=== PATIENT | female | born 1970 | race Caucasian/White ===

== ENCOUNTER 2016-04-13 06:51 | Observation (INO) | payer BC ==
[2016-04-13] MEDS ORDERED: LORazepam TAB(*) 1 MG ONE (07:30)
[2016-04-13] MEDS ORDERED: Heparin 2 UNITS/ML IVPREMIX* 1,000 ML IV ONE ×3 (08:50→11:15)
[2016-04-13] MEDS ORDERED: fentaNYL* 50 MCG/ML 5 ML VIAL (250 MCG VIAL) ONE ×3 (08:51→12:18)
[2016-04-13] MEDS ORDERED: Lidocaine 1% INJ* 10 MG/ML 30 ML SDV ONE ×2 (08:51→11:05)
[2016-04-13] MEDS ORDERED: Iohexol 350 (CONTRAST) 200 ML MDV IV ONE ×4 (08:51→13:11)
[2016-04-13] MEDS ORDERED: Midazolam* 1 MG/ML 5 ML VIAL (5 MG) ONE ×3 (08:52→14:01)
[2016-04-13] MEDS ORDERED: Clindamycin 900 MG IVPREMIX(* 900 MG/50 ML SDV IV ONE (09:00)
[2016-04-13 09:06] LABS: Manual Entry Verification AS; UR Preg Internal Control QC Line Present; UR Preg Kit Lot# 6060104
[2016-04-13] MEDS ORDERED: Ondansetron INJ* 2 MG/ML VIAL ONE ×3 (09:19→12:19)
[2016-04-13] MEDS ORDERED: Ketorolac INJ* 30 MG/ML 1 ML VIAL ONE ×2 (09:19→13:59)
[2016-04-13] MEDS ORDERED: nitroGLYCERIN DRIP* 250 ML ONE (09:24)
[2016-04-13] MEDS ORDERED: Heparin(*) 1000 UNIT/ML 10 ML VIAL CATH LAB IV ONE (09:24)
[2016-04-13] MEDS ORDERED: VERAPAMIL 2.5 MG/ML 4 ML VIAL ONE (09:24)
[2016-04-13] MEDS ORDERED: Scopolamine 1.5 mg* PATCH TRANSDERM ONE (12:00)
[2016-04-13] MEDS ORDERED: PROCHLORPERAZINE INJ 5 MG/ML 2 ML VIAL ONE (12:32)
[2016-04-13] MEDS ORDERED: HYDROmorphone INJ* 1 MG/ML CARPUJECT SYRINGE ONE (14:14)
[2016-04-13] MEDS ORDERED: HYDROmorphone PCA* 20 MG/20 ML PCA.SYRING ONE (14:57)
[2016-04-13] MEDS: HYDROmorphone PCA* 20 MG/20 ML PCA.SYRING PCA SCH ×2 (15:00→15:56)
[2016-04-13] MEDS ORDERED: tiZANidine TAB* 2 MG PO PRN (15:26)
[2016-04-13] MEDS: Ondansetron INJ* 2 MG/ML VIAL IV PRN (15:37)
--- NOTE | 2016-04-13 16:46 | RAD ---
CPT II Codes: 6045F UTERINE ARTERY EMBOLIZATION FIRST ATTEMPTED FROM A LEFT RADIAL ARTERIOTOMY AND THEN COMPLETED FROM RIGHT COMMON FEMORAL ARTERIOTOMY History: Pain, vaginal bleeding and dyspareunia secondary to uterine fibroids. Comparison: MRI of the pelvis February 02, 2016 that depicts multiple uterine fibroids. Anesthesia: Conscious sedation with IV 750 mcg Fentanyl and 11 mg Versed as well as local 1% lidocaine injected locally at the arteriotomy sites. Additional medications: "Radial cocktail" (Heparin 3000 units, Nitroglycerin 300 mcg and Verapamil 3 mg) was slowly injected into the radial artery sheath immediately after arterial access over the course of 1 minute. Toradol 30 mg IV. Toradol 30 mg intra-arterial (15 mg injected into each uterine artery). Scopolamine patch placed immediately before the embolization procedure. Clindamycin 900 mg IV administered immediately before the procedure. 1150 mcg IA nitroglycerin administered intermittently throughout the procedure to alleviate arterial spasm. Compazine 5 mg. Versed 8 mg Bilateral 1 mg Contrast: 150 mL Omnipaque 350 Fluoroscopy Time: 54.2 minutes PROCEDURE NOTE AND INTRAPROCEDURAL IMAGING FINDINGS: In the holding area the patient underwent a Barbeau and Tre test documenting that both the left radial and ulnar arteries were patent and were capable of sustaining adequate arterial flow to the left hand and fingers. Following a preprocedural clinical evaluation the risks and benefits were again carefully discussed with the patient and informed consent was obtained. The patient was positioned on the fluoroscopy table in the supine position with a radial artery armboard positioned on the left wrist. The left wrist and bilateral groins were prepped and draped in standard sterile fashion. Using fluoroscopic imaging the location of the distal left radius was visualized. Utilizing sonographic guidance and palpation the left radial artery was cannulated overlying the distal left radius with an 21-gauge needle. An ultrasound image was saved. A microwire was slowly and smoothly advanced to the more proximal radial artery under fluoroscopic imaging. No buckling of the wire was visualized to indicate dissection. Over the wire a 5-Bangladeshi radial artery appropriate catheter was advanced into the artery and the inner stiffener was removed. Through the side arm of the access sheath the "radial cocktail" was attached and diluted with approximately 10 mL of arterial blood. This mixture was gently agitated and slowly injected back into the side arm of the access sheath over the course of 1 minute. At this point a 0.035" wire was loaded onto a 5-Bangladeshi curved tip catheter, and with the wire protruding out of the end of the catheter, the combination was inserted into the sheath and gently advanced under fluoroscopic control in the cephalad direction. Access was obtained via the left subclavian artery into the arch of the aorta and the catheter wire combination was advanced caudally towards the aortic bifurcation. The catheter and wire were advanced to the infrarenal abdominal aorta for the purpose of performing a pelvic arteriogram. The catheter was removed and replaced with a multi-sidehole pigtail flush catheter. Arteriography demonstrated standard pelvic arterial anatomy and large bilateral uterine fibroids. No hypertrophied ovarian arteries were identified providing uterine arterial flow. The patient began complaining of discomfort in the left upper extremity describing a "aching sensation" that did not respond to standard pain medication as part of the conscious sedation. Furthermore, the pulse oximetry on the patient's left thumb began showing diminished waveforms and hypoxia as low as 85%. The patient's fingertips were exposed and directly visualized and did exhibit mild pallor with delayed capillary refill. The catheter was pulled back to the junction of the axillary and brachial artery and arteriography was performed demonstrating mild long segment narrowing of the brachial artery characteristic of vasospasm. Approximately 200 mcg of nitroglycerin was gently injected from that point in the proximal brachial artery and then the catheter was removed. Promptly, the arterial waveforms return to normal as did the pulse oximetry. Now de-scrubbed to perform physical examination of the patient's hand the fingers felt warm to touch and capillary refill was normal. It was at this point it was determined that the patient appeared to be prone to vasospasm and could not tolerate catheterization during the course of uterine fibroid embolization of the left upper extremity. The access sheath was carefully removed and gentle manual pressure was held at the radial arteriotomy for approximately 15 minutes. Pulse oximetry was monitored during this time to ascertain adequate arterial flow to the left hand and fingers. The arteriotomy was dressed with sterile dressing, bleeding was controlled and adequate arterial flow to the left hand and fingers was demonstrated. I discussed the situation first with a patient who expressed the desire to proceed with uterine fibroid embolization. Afterwards, I spoke with the patient's partner "Kathryn" to explain the situation and conveyed to her that the patient desired to continue UFE from a standard common femoral arteriotomy. The patient's partner was supportive of this plan as well. The patient was repositioned and again prepped and draped according to standard sterile protocol. A second timeout was performed and all parties including the patient were in agreement. Using fluoroscopic imaging the location of the right common femoral head was marked externally with a skin marker on the patient's groin. Utilizing sonographic guidance and palpation the right common femoral artery was cannulated overlying the right femoral head with an 18-gauge needle. An ultrasound image was saved. A 0.035 inch Bentson wire was slowly and smoothly advanced to the aortic bifurcation under fluoroscopic imaging. No buckling of the wire was visualized to indicate dissection. Over the wire a 5-Bangladeshi SideArm sheath was advanced into the artery, the inner stiffener removed and side arm arteriogram demonstrated appropriate level ELECTRIC MOTOR TESTER access. Utilizing a Bentson wire and 5-Bangladeshi Contra 2 flush catheter the left common iliac artery was accessed. Contrast angiography was performed to detail the branches of the left internal iliac artery which had depicted the uterine artery providing blood flow to the patient's fibroid uterus. Arteriograms in multiple oblique projections were performed to best discern the branch point of the uterine artery. Once the uterine artery was identified, a Renegade High-flow microcatheter and microwire were advanced into the parent catheter and, in conjunction with contrast angiography, the uterine artery was identified and selected with the micro catheter. Prior to embolization, contrast injection in the lateral portion of the uterine artery demonstrated no large, obvious collateral blood flow to the ovaries and a definite cervicovaginal branch was not seen descending inferiorly. Intra-arterial nitroglycerin was intermittently injected to alleviate arterial spasm. Under fluoroscopic control approximately 1 and 3/4 vials of 500-700 micron Embospheres were slowly injected into the uterine artery to near complete stasis. [place] through the embolization 15 mg of Toradol was injected intra-arterially. The microcatheter was pulled back into the more proximal descending portion of the uterine artery and contrast angiography depicted near complete stasis of the uterine artery. The microcatheter was removed and replaced with an 0.035" guidewire. The morphology of the patient's vasculature may difficult forming a Merit reverse curve uterine catheter. Ultimately a "Sweetie's loop" was created utilizing the stiff end of the Bentson wire and a 5-Bangladeshi curved tip catheter. The Bentson wire was removed and replaced with a 0.035 inch hydrophilic wire (within the soft flexible tip leading). Utilizing the hydrophilic wire and the now "looped" 5-Bangladeshi curved tip catheter access into the ipsilateral right internal iliac artery was obtained. Contrast angiography demarcated the right uterine artery and multiple oblique projections were obtained to best depict the origin of the uterine artery. Access into the right uterine artery was challenging due to the tortuous branch point of the artery as well as due to vasospasm at the ostium and proximal portion. Ultimately a Renegade High-flow microcatheter and microwire were advanced into the parent catheter and, in conjunction with contrast angiography, the uterine artery was identified and selected with the micro catheter. Prior to embolization, contrast injection in the lateral portion of the uterine artery demonstrated no large, obvious collateral blood flow to the ovaries and a definite cervicovaginal branch was not seen descending inferiorly. Intra-arterial nitroglycerin was intermittently injected to alleviate arterial spasm. Under fluoroscopic control approximately 1 and 1/4 vial of 500-700 micron Embospheres and approximately 3/4 vial of 700-900 um Embospheres were slowly injected into the uterine artery to near complete stasis. [place] through the embolization 15 mg of Toradol was injected intra-arterially. The microcatheter was pulled back into the more proximal descending portion of the uterine artery and contrast angiography depicted near complete stasis of the uterine artery. The micro catheter was removed, replaced with a 0.035" wire and the looped 5-Bangladeshi curved tip catheter and wire were removed after reaccessing the contralateral left common iliac artery. The access sheath was removed and pressure was held at the common femoral arteriotomy for approximately 15 minutes. There were no signs of bleeding at the right groin access site and the site was dressed with sterile gauze and Tegaderm. The patient tolerated the procedure well and was transferred to the short stay recovery unit in stable condition for routine overnight observation and pain and nausea control. IMPRESSION: 1. Uterine artery embolization first attempted from a left radial arteriotomy access. After the initial pelvic arteriogram the patient complained of persistent left upper extremity pain and exhibited diminished pulse oximetry of the left hand and fingertips due to long segment vasospasm of the left brachial artery. Normal arterial flow was reestablished after local injection of nitroglycerin and removal of the catheter. Ultimately the radial access sheath was removed and hemostasis was achieved with gentle manual pressure. 2. After determining that normal and safe arterial flow had resumed to the left hand and fingers and bleeding was controlled the situation was discussed with the patient and the patient's partner "Kathryn". Both the patient and her partner desired pursuing the uterine fibroid embolization from a left common femoral arteriotomy. The patient was repositioned, resterilized and draped and the procedure was performed from the right common femoral arteriotomy. 3. Pelvic arteriography demonstrates a fibroid uterus. 4. Pelvic arteriography and aortography as described in the body of the report. 5. Successful bilateral uterine artery embolization utilizing a total of 3 vials of 500-700 micron Embospheres and approximately 3/4 vial of 700-900 micron Embospheres. . 6. Post embolization uterine arteriography demonstrates near complete stasis of blood flow in each uterine artery. Plan: 1. The patient is to be admitted to short state recovery unit for routine overnight observation and pain and nausea control. 2. Outpatient management and follow-up according to Interventional Radiology protocol.
--- NOTE | 2016-04-13 17:39 | PN ---
Progress Note - Progress Note SOAP: Date of Service: 04/13/16 Subjective: Patient without pain complaints with Dilaudid ORDNANCE MECHANIC. Nausea controlled with PRN Zofran. No emesis since arrival to [facility]. Denies pain at either arteriotomy. Denies LUE and left hand pain. Objective: [] Selected Entries 04/13/16 04/13/16 16:34 16:56 Temperature 97.6 F Pulse Rate 71 Respiratory 18 Rate Blood Pressure 143/83 (mmHg) Blood Pressure 98 Mean O2 Sat by Pulse 97 Oximetry Specifically a pulse oximeter on the left middle finger reads high 90's to 100% Arousable, but sleepy Right CF and left radial arteriotomies are soft, non-ecchymotic and not tender Dressings are CDI RLE with 2+ pulses, right foot is warm to touch Left radial is 1+ palpable, left hand is perfused, <2 second capillary refill NM intact in left hand No significant tenderness to pelvic palpation Assessment: 45 YOF status post Uterine Fibroid Embolization, first attempted from a failed left radial artertiomy, then completed successfully from right CF arteriotomy. The patient experienced vasospasm in the left brachial artery which resolved after removal of the left radial access. Plan: 1. Standard post UFE pain and nausea control with Compazine 5 mg Q 6 hours replacing Zofran. (Zofran remains PRN). 2. Continue pulse oximetry monitoring of the left hand (currently 100% saturation). 3. Villalba d/c at 2000 hours at the same time as bedrest order will cease. 4. Advance diet cautiously. 5. Transition to PO meds tomorrow (as nausea/emesis allows) and encourage ambulation.
[2016-04-13] MEDS ORDERED: NIFEdipine ER TAB* 30 MG PO ONE (19:15)
[2016-04-13] MEDS: Ketorolac INJ* 15 MG/ML 1 ML VIAL IV PUSH SCH (20:15)
[2016-04-13] MEDS: PROCHLORPERAZINE INJ 5 MG/ML 2 ML VIAL IV SCH ×2 (20:15→21:01)
[2016-04-13] MEDS ORDERED: Atenolol TAB* 25 MG PO SCH (21:00)
--- NOTE | 2016-04-13 21:20 | HP ---
HISTORY AND PHYSICAL: DATE OF ADMISSION: 04/13/16 PRIMARY CARE PROVIDER: Dr. Ponce. ATTENDING PHYSICIAN WHILE IN THE HOSPITAL: Sandra Solares MD * (report dictated by Miles Vaughan NP). CONSULTING BOAT WASHER: Dr. Shaver. CHIEF COMPLAINT: Pelvic pain syndrome. HISTORY OF PRESENT ILLNESS: Mrs. Aranda is a 45-year-old female patient who recently was diagnosed with uterine fibroids. She has had a longstanding history of heavy menses and pelvic pain associated with menses. She has had endometriosis, PCOS. In addition to this, has had significant pain associated with her menses. This is starting to affect her ADLs. She was having difficulty managing the pain with conservative therapy. She sought care with Dr. Shaver, who scheduled her for an uterine fibroid embolization, which she underwent today and we were asked to evaluate to help for the admission. The patient was evaluated in the postoperative setting. She said she feels drowsy but she says she is having lower abdominal cramping. She does not feel nauseous. She just feels tired. She denies having any chest pain. She denies having any shortness of breath, nausea. She states the SMALL PARTS ASSEMBLER is controlling her pain well. She says that she denies having any numbness or tingling through the right lower extremity and she says that her left wrist she has no numbness or tingling there. A radial approach was attempted but I will refer you to Dr. Shaver's procedure report. Ultimately a femoral approach was needed to complete the procedure. She also carries a history of GERD, scoliosis, lumbar radiculopathy, history of spinal stenosis, and SVT, and because of her comorbid medical conditions and her medical complexity, we were asked to evaluate the patient for admission with a consult from Dr. Shaver. PAST MEDICAL HISTORY: Significant for: 1. Uterine fibroids. 2. Endometriosis. 3. PCOS. 4. GERD. 5. Scoliosis. 6. Lumbar radiculopathy. 7. Spinal stenosis. 8. SVT. PAST SURGICAL HISTORY: 1. She has had . 2. Oophorectomy. 3. Appendectomy. HOME MEDICATIONS: Include: 1. Zanaflex 4 mg p.o. at bedtime as needed. 2. Vitamin E 100 units p.o. daily. 3. Omeprazole 20 mg daily. 4. Rio 1 tablet every 4 hours as needed. 5. Flonase 2 sprays intranasally daily. 6. Vitamin B 1 capsule daily. 7. Atenolol 25 mg at bedtime. ALLERGIES TO MEDICATIONS: Include AMOXICILLIN, AZITHROMYCIN, ERYTHROMYCIN, RELAFEN, PENICILLIN, SULFA, and TETANUS. FAMILY HISTORY: Mother had a history of ovarian cyst, otherwise family history reviewed and noncontributory. SOCIAL HISTORY: She is a former smoker. She rarely drinks alcohol. Surrogate decision maker is her partner, Kathryn. REVIEW OF SYSTEMS: There is no documented fever. She denies having any significant weight change. She denies having any double vision. There is no ear discharge. There is no rhinorrhea, no sore throat, no thyroid enlargement. She denies having any chest pain. There is lower abdominal cramping. She denies having any nausea. There is no vomiting. No dysuria, no frequency, no loss of consciousness, no pruritus, no skin ulcerations. Review of 14 systems completed, all others negative. PHYSICAL EXAMINATION GENERAL: At this time, Mrs. Aranda is a 45-year-old female patient. She is evaluated in the surgical unit in the postoperative setting. She does not appear to be in any acute distress. She is awake and alert. She does appear to be drowsy. VITAL SIGNS: Blood pressure 148/84, pulse 55, respirations 18, O2 sat 98%, temperature 97.3. HEENT: Head is atraumatic, normocephalic. Eyes: EOMs are intact. Sclerae anicteric and not pale. Throat: Oral mucosa appears to be dry. No oropharyngeal erythema. NECK: Supple. LUNGS: Clear to auscultation bilaterally. No wheezes, rales, or rhonchi. HEART: Sounds S1, S2. Regular rate and rhythm. No murmurs, rubs, or gallops. ABDOMEN: Soft, flat, nontender. Bowel sounds present. EXTREMITIES: Pulses 2+ throughout. Distal CSM checks are intact to left wrist and the right lower extremity. The right lower extremity is immobilized at this point. NEUROLOGIC: She is awake, alert, and oriented x3. Speech clear. Tongue midline. She is a little drowsy but she awakens appropriately and answers appropriately. No gross focal deficits. SKIN: Intact. She has an incision to the left wrist and to the right groin, which were clean, dry, and intact. DIAGNOSTIC STUDIES/LAB DATA: Preoperative labs revealed a WBC of 6.2, RBC of 3.99, hemoglobin 11.5, hematocrit 35, platelet count of 240. Sodium is 136, potassium 4.2, chloride 106, bicarb 25, BUN 11, creatinine 0.73, glucose 104. She had a pelvic MRI done in January 2016, which showed MRI findings are compatible with multiple uterine fibroids located in the subserosal, myometrial and submucosal uterus, the latter cause a mild degree of torsion of the uterine stripe, ovarian follicles are identified and bilateral ovaries are not pathologic in a woman of reproductive age. Old medical records reviewed. ASSESSMENT AND PLAN: Mrs. Aranda is a 45-year-old female patient coming into Dr. Shaver's service today for an elective uterine fibroid embolization. Hospitalist service was asked to evaluate for admission. She will be admitted under observation status for: 1. Uterine fibroid embolization. I will defer the management to Dr. Shaver and his team. 2. History of endometriosis and PCOS. She can follow with her primary. 3. History of gastroesophageal reflux disease. Continue PPI therapy. 4. Scoliosis, radiculopathy, and spinal stenosis. She currently has a SMALL PARTS ASSEMBLER for now. I recommend going back on her prior pain medications when SMALL PARTS ASSEMBLER discontinued. 5. History of supraventricular tachycardia. Continue the atenolol as prescribed. 6. DVT prophylaxis. I will defer this to Dr. Shaver but for the time being she will be on SCDs. 7. Fluids, electrolytes, nutrition. She can have a clear liquid diet, we will start her on clears and advance her to a regular diet. 8. Code status. Full code. TIME SPENT: Time spent on the admission was approximately 60 minutes; greater than half the time was spent [id number] with the patient obtaining my history and physical, the other half of the time is spent going over the plan of care with the patient and implementing plan of care. I discussed the plan of care with my attending, Dr. Solares, she is in agreement. MILES VAUGHAN NP CC: Dr. Ponce; Dr. Shaver * [id number]/[facility] #: [id number] MTDD
[2016-04-13] MEDS: NS 0.9% 1000 ML* 1,000 ML IV SCH (22:37)
[2016-04-14] MEDS: Ondansetron INJ* 2 MG/ML VIAL IV PRN ×3 (00:05→12:30)
[2016-04-14] MEDS ORDERED: Omeprazole CAP* 20 MG PO SCH (01:00)
[2016-04-14] MEDS: PROCHLORPERAZINE INJ 5 MG/ML 2 ML VIAL IV SCH ×2 (01:51→08:16)
[2016-04-14] MEDS: Ketorolac INJ* 15 MG/ML 1 ML VIAL IV PUSH SCH ×2 (01:52→08:16)
[2016-04-14] MEDS: Acetaminophen TAB* 325 MG PO PRN ×3 (04:09→12:25)
[2016-04-14] MEDS: NS 0.9% 1000 ML* 1,000 ML IV SCH ×2 (04:10→08:17)
[2016-04-14] MEDS: oxyCODONE TAB* 5 MG TAB PO PRN ×2 (08:54→12:25)
[2016-04-14] MEDS ORDERED: Fluticasone NASAL SPRAY 50MCG* 16 gm SPRAY BTL NASAL SCH (09:00)
--- NOTE | 2016-04-14 09:31 | PN ---
Progress Note - Progress Note SOAP: Date of Service: 04/14/16 Subjective: [Pain currently controlled after receiving PO Oxycodone. No nausea currently. Has drank clear liquids and had jello without emesis. "[place]" material on toilet paper after urinating. No heavy vaginal bleeding or other vaginal discharge. ] Objective: [] Selected Entries 04/14/16 04/14/16 04/14/16 07:16 07:46 08:54 Temperature 98.5 F Pulse Rate 64 Respiratory 18 Rate Blood Pressure 145/71 (mmHg) Blood Pressure 89 Mean O2 Sat by Pulse 100 Oximetry Mild distress, feels exhausted AAO x 3 Left radial arteriotomy site is soft, NT, dressing CDI left hand is warm to touch with <2 second capillary refill, NM intact right CF arteriotomy is soft, NT, dressing CDI 2+ pulses in RLE, right foot warm Pain elicited with palpation of lower abdomen and pelvis Assessment: 45 YOF POD #1 UFE, first attempted from left radial artery which was not tolerated due to vasospasm, and therefore performed successfully from the right EQUITY RESEARCH ASSOCIATE. Plan: 1. Continue transition from IV to PO medications. 2. Procardia XL 30 mg PO now. 3. Awaiting LUE arterial duplex. 4. Encourage ambulation and progression of diet.
[2016-04-14] MEDS ORDERED: NIFEdipine ER TAB* 30 MG PO ONE (09:32)
[2016-04-14 10:34] LABS: Hematocrit 36 % (35-47); Hemoglobin 11.7 g/dl (12.0-16.0); Mean Corpuscular HGB Conc 33 g/dl (31-36); Mean Corpuscular Hemoglobin 29 pg (27-31); Mean Corpuscular Volume 87 fL (80-97); Mean Platelet Volume 8 um3 (7.4-10.4); Red Blood Count 4.08 10^6/ul (4.0-5.4); Red Cell Distribution Width 15 % (10.5-15); White Blood Count 13.4 10^3/ul (3.5-10.8)
[2016-04-14 10:49] LABS: BUN/Creatinine Ratio 8.2 (8-20); Calcium 8.1 mg/dL (8.6-10.3); EGFR African American 110.4 (>60); EGFR Non-African American 85.8 (>60); Potassium 3.6 mmol/L (3.5-5.0)
[2016-04-14] MEDS ORDERED: Calcium Carbonate CHEW TAB* 500 MG (TUMS) PO PRN (11:14)
--- NOTE | 2016-04-14 11:14 | RAD ---
INDICATION: Left hand pain and reduced pulse oximetry after left radial arteriotomy and catheterization. COMPARISON: None. TECHNIQUE: Alvarez scale, color Doppler, and spectral analysis was performed to evaluate the arteries of the bilateral upper extremities. REPORT: The left subclavian, axillary and proximal left brachial arteries are adequately patent. Beginning at approximately the mid-level of the left brachial artery there is thrombotic occlusion causing an absence of color-flow appearance. More distally the left brachial artery exhibits adequate color flow at the level of the antecubital fossa and there is flow in the distal most portion of the brachial artery contiguous with the patent ulnar artery. There is no flow identified in the left radial artery. IMPRESSION: Occlusion at the mid-level left brachial artery which exhibits patent flow more distally with contiguous flow identified into the left ulnar artery. There is no arterial flow identified in the left radial artery.
[2016-04-14] MEDS ORDERED: Heparin DRIP 25,000 UNITS(*) 25,000 UNITS/500 ML BAG IVPB SCH (11:15)
[2016-04-14] MEDS ORDERED: Calcium Carbonate CHEW TAB* 500 MG (TUMS) ONE (11:36)
--- NOTE | 2016-04-14 11:53 | DS ---
The patient is a 45 year old female POD #1 status post Uterine Fibroid Embolization (UFE). The UFE was initially attempted from a left radial artery access. The arteriotomy was done with ultrasound guidance demonstrating an uncomplicated single wall penetration access. The microwire advanced to the distal brachial artery without bending or buckling and the Terumo Slim 5 [place] sheath advanced over the wire without resistance. The 0.035" hydrophilic wire also advanced up the arm under fluoroscopic guidance without buckling or bending. The 5 [place] flush catheter also advanced easily onto the aorta for the pelvic arteriogram. The patient complained of arm "aching" and the pulse oximeter began showing abnormal waveform and reduced oxygenation into the upper 80's. The catheter was retracted to the axially/brachial junction and arteriography showed narrowing of the distal brachial artery. 200 mcg of nitrcoglycerin was slowly injected through the catheter and the catheter was removed. The patient's subjective symptoms resolved at this point and the pulse oximetry returned to a steady normal. The catheter was removed over a wire and then the sheath was removed. Gentle pressure was held over the radial arteriotomy for 15 minutes while pulse oximeters were monitored. The UFE proceeded after accessing the right common femoral artery. Currently the patient does not have any LUE or hand complaints including pain or numbness. Pulse oximetry from the left fingers has been normal. An ultrasound was obtained as a precaution which showed occlusion at the mid- level left brachial artery and occlusion of the left radial artery. At the time of this note the patient is going to begin Heparin gtt, loading bolus 8000 units followed by 400 units/hour, with a goal PTT of 60-80. A conversation was had with Lisa and her partner Kathryn carefully explaining the problem and why I favor transfer to [facility] versus re-imaging in 24 hours. The case was discussed with Dr. Mora at [facility] and he agreed to accept the transfer.
[2016-04-14] MEDS ORDERED: Heparin VIAL(*) 5000 UNITS/ML VIAL (FIVE THOUSAND) IV SCH (12:00)
[2016-04-14] MEDS ORDERED: HYDROmorphone INJ* 1 MG/ML CARPUJECT SYRINGE IV ONE (12:00)
[2016-04-14] MEDS ORDERED: Famotidine TAB* 20 MG PO ONE (12:13)
[2016-04-14] MEDS ORDERED: Famotidine TAB* 20 MG ONE (12:18)
[2016-04-14] MEDS ORDERED: Heparin DRIP 25,000 UNITS(*) 25,000 UNITS/500 ML BAG ONE (13:22)
[2016-04-14] MEDS: Heparin DRIP 25,000 UNITS(*) 25,000 UNITS/500 ML BAG IVPB SCH ×2 (13:27→13:56)
[2016-04-14] MEDS ORDERED: Prochlorperazine TAB* 5 MG PO SCH (14:15)
[2016-04-14] MEDS ORDERED: KETOROLAC 10 MG PO SCH (14:15)
[2016-04-14 15:53] VITALS: BP 137/66
[2016-04-14] MEDS ORDERED: Ondansetron ODT TAB* 4 MG PO ONE (16:03)
[2016-04-14] MEDS ORDERED: oxyCODONE TAB* 5 MG TAB PO ONE (16:03)
[2016-04-14] MEDS ORDERED: oxyCODONE TAB* 5 MG TAB ONE (16:08)
[2016-04-14] MEDS ORDERED: Ondansetron ODT TAB* 4 MG ONE (16:08)
--- NOTE | 2016-04-14 17:02 | DCNOTE ---
Please see discharge summary for more details. There was no bed availability at [facility]. Called [facility], and Dr Mayer, vascular surgeon, accepted patient in transfer and [facility] is accepting vascular patients. Patient will be transferred via ambulance with heparin drip running.
--- NOTE | 2016-04-15 00:40 | TRS ---
DISCHARGE SUMMARY: DATE OF ADMISSION: 04/13/16 DATE OF TRANSFER: 04/14/16 PRIMARY CARE PROVIDER: Nini Ponce MD INTERVENTIONAL RADIOLOGIST: Chase Shaver MD DISCHARGING PROVIDER: SANJAY Maldonado SUPERVISING PHYSICIAN: Kath Perez DO * (DICTATED BY SANJAY MALDONADO) DISCHARGE DIAGNOSES: 1. 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 2. Status post uterine fibroid embolization. SECONDARY DISCHARGE DIAGNOSES: 1. History of endometriosis and polycystic ovarian syndrome. 2. Gastroesophageal reflux disease. 3. Scoliosis and spinal stenosis with radiculopathy. 4. History of supraventricular tachycardia. DISCHARGE MEDICATIONS: 1. Atenolol 25 mg p.o. at bedtime. 2. Vitamin B complex 1 tablet p.o. daily. 3. Fluticasone nasal spray 50 mcg 2 sprays at each nostril daily. 4. Vicodin 2 tablets p.o. q.6 hours p.r.n. pain. 5. Toradol 10 mg p.o. q.6 hours x3 days. 6. Omeprazole 20 mg p.o. daily. 7. Compazine 5 mg p.o. q.6 hours p.r.n. nausea. 8. Scopolamine patch 1.5 mg apply transdermally, replace every 72 hours for nausea. 9. Vitamin E supplement. 10. Tizanidine 4 mg p.o. at bedtime. 11. Heparin drip initiated with an 8000-unit bolus at initial drip rate of 400 units per hour. Goal PTT is between 60 and 80. HOSPITAL IMAGING: Arterial ultrasound of the left upper extremity shows occlusion at the mid level of the left brachial artery, which does exhibit flow more distally into the left ulnar artery, but there is no arterial flow identified in the left radial artery. HOSPITAL COURSE: This is a 45-year-old female with a history of PCOS, endometriosis, pelvic pain, and heavy menstrual bleeding who underwent uterine fibroid embolization with Dr. Chase Shaver yesterday, 04/13/16. Initially attempted left radial artery access, but the patient was unable to tolerate due to vasospasm and the procedure was completed via right femoral artery access. The patient was routinely admitted to the hospital for pain and nausea management overnight. 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 antiemetics. Morning of discharge, she was still complaining of significant cramping abdominal pain and intermittent nausea. The patient had no complaints of left upper extremity pain. Ultrasound was ordered as a precautionary measure by Dr. Shaver, which did show occlusion of the left brachial and radial artery. Dr. Shaver was in touch with vascular surgeon, Dr. Mora, at [facility], who agreed to accept the patient in transfer for further monitoring and intervention if necessary. Heparin drip was initiated prior to discharge. Please see Dr. Shaver's discharge summary for more details of the procedure. DISPOSITION: The patient is being transferred via ambulance to [facility]. Accepting physician is Dr. Mora for further monitoring and potential intervention for left brachial and radial artery occlusion. SANJAY MALDONADO CC: Dr. Nini Haile; Dr. Chase Shaver * [id number] #: [id number] [facility]
== END 2016-04-14 16:30 | disposition short-term general hospital (02) ==
LOC: CHICATH 06:51 → SSU 15:02
PROVIDERS: ADMIT Radiology Diagnostic Radiology; ATTEND Hospitalist
DX: D25.9 Leiomyoma of uterus, unspecified (principal); I74.2 Embolism and thrombosis of arteries of the upper extremities; M79.642 Pain in left hand; N80.9 Endometriosis, unspecified; E28.2 Polycystic ovarian syndrome; K21.9 Gastro-esophageal reflux disease without esophagitis; I47.1 Supraventricular tachycardia; M48.00 Spinal stenosis, site unspecified; Z88.0 Allergy status to penicillin; Z88.1 Allergy status to other antibiotic agents; Z88.2 Allergy status to sulfonamides; Z88.8 Allergy status to other drugs, medicaments and biological substances; Z87.891 Personal history of nicotine dependence
CPT/HCPCS: 36415; 37243; 80048; 81025; 85025; 85610; 85730; 94760; 96365; 96366; 96372; 96375; 96376; A9270-GY; C1725; C1769; C1884; C1887; G0378; J0780; J1170; J1644; J1885; J2250; J2405; J3010